=== PATIENT | male | born 1990 | race Caucasian/White ===

== ENCOUNTER 2016-04-29 19:26 | Inpatient (IN) | payer BC ==
--- NOTE | 2016-04-29 20:07 | HP ---
COWS - Scale Resting Pulse: 1= [place] 81-100 Sweatin=Flushed/Facial Moisture Restless Observation: 3= Extraneous Movement Pupil Size: 0= Normal to Room Light Bone or Joint Aches: 2= Severe Diffuse Aches Runny Nose/ Eye Tearin= Nasal Congestion GI Upset > 30mins: 3= Vomiting/Diarrhea Tremor Observation: 2= Slight Tremor Visible Yawning Observation: 0= None Anxiety or Irritability: 2=Irritable/Anxious Goose Flesh Skin: 0=Smooth Skin COWS Score: 16 CIWA Score - CIWA Score Nausea/Vomitin Muscle Tremors: 4-Moderate,w/Arms Extend Anxiety: 4-Mod. Anxious/Guarded Agitation: 4-Moderately Restless Paroxysmal Sweats: 1-Minimal Palms Moist Orientation: 1-Uncertain about Date Tacttile Disturbances: 0-None Auditory Disturbances: 0-None Visual Disturbances: 0-None Headache: 0-None Present CIWA-Ar Total Score: 16 Admission ROS BHS - HPI Chief Complaint: withdrawal sx Allergies/Adverse Reactions: Allergies Allergy/AdvReac Type Severity Reaction Status Date / Time No Known Allergies Allergy Verified 04/29/16 20:16 History of Present Illness: 26 years old male with long history of opiate alcohol nicotine dependence, has copd asthma denies mental illness is admitted to detox Exam Limitations: No Limitations - Ebola screening Have you traveled outside of the country in the last 21 days: No Have you had contact with anyone from an Ebola affected area: No Have you been sick,other than usual withdrawal symptoms: No Do you have a fever: No - Review of Systems Constitutional: Chills, Changes in sleep, Weight Stable EENT: reports: Hearing Loss (both ears) Respiratory: reports: Productive cough (black/greenish) Cardiac: reports: No Symptoms Reported GI: reports: Diarrhea, Nausea, Poor Fluid Intake, Abdominal cramping : reports: No Symptoms Reported Musculoskeletal: reports: Back Pain, Joint Pain, Muscle Pain, Neck Pain Integumentary: reports: No Symptoms Reported Neuro: reports: Tremors Endocrine: reports: No Symptoms Reported Hematology: reports: No Symptoms Reported Psychiatric: reports: Judgement Intact, Mood/Affect Appropiate Other Systems: Reviewed and Negative Patient History - Patient Medical History Hx Anemia: No Hx Asthma: No Hx Chronic Obstructive Pulmonary Disease (COPD): No Hx Cancer: No Hx Cardiac Disorders: No Hx Congestive Heart Failure: No Hx Hypertension: No Hx Hypercholesterolemia: No Hx Pacemaker: No HX Cerebrovascular Accident: No Hx Seizures: No Hx Dementia: No Hx Diabetes: No Hx Gastrointestinal Disorders: No Hx Liver Disease: No Hx Genitourinary Disorders: No Hx Sexually Transmitted Disorders: No Hx Renal Disease (ESRD): No Hx Thyroid Disease: No Hx Human Immunodeficiency Virus (HIV): No Hx Hepatitis C: No Hx Depression: No Hx Suicide Attempt: Yes (accidental overdose 2009) Hx Bipolar Disorder: No Hx Schizophrenia: No - Patient Surgical History Past Surgical History: Yes Hx Neurologic Surgery: No Hx Cataract Extraction: No Hx Cardiac Surgery: No Hx Lung Surgery: No Hx Breast Surgery: No Hx Breast Biopsy: No Hx Abdominal Surgery: No Hx Appendectomy: No Hx Cholecystectomy: No Hx Genitourinary Surgery: No Hx Orthopedic Surgery: No Other Surgical History: left inguinal hernia [id number] Anesthesia Reaction: No - PPD History Previous Implant?: Yes Documented Results: Negative w/proof Implanted On Prior R Admission?: Yes Date: 04/02/15 PPD to be Administered?: Yes - Smoking Cessation Smoking history: Current every day smoker Have you smoked in the past 12 months: Yes Aproximately how many cigarettes per day: 40 Cigars Per Day: 0 Hx Chewing Tobacco Use: No Initiated information on smoking cessation: Yes 'Breaking Loose' booklet given: 04/29/16 - Substance & Tx. History Hx Alcohol Use: Yes Hx Substance Use: Yes Substance Use Type: Alcohol, Marijuana, Opiates, Tranquilizers Hx Substance Use Treatment: Yes - Substances Abused Alcohol Route: Oral Frequency: Daily Amount used: pint volka+1/2L beer x 10 Age of first use: 16 Date of Last Use: 04/29/16 Oxycontin Route: Oral Frequency: Daily Amount used: 100 mg Age of first use: 23 Date of Last Use: 04/29/16 Marijuana/Hashish Route: Smoking Frequency: Daily Amount used: 3-5 G Age of first use: 12 Date of Last Use: 04/29/16 Family Disease History - Family Disease History Family Disease History: Other: Grandparent (opiate dep), Father (opiate dep) Admission Physical Exam BHS - Physical General Appearance: Yes: Nourished, Appropriately Dressed, Mild Distress, Tremorous, Irritable, Sweating, Anxious HEENTM: Yes: Hearing grossly Normal, Normal ENT Inspection, Normocephalic, Normal Voice Respiratory: Yes: Chest Non-Tender, No Respiratory Distress, No Accessory Muscle Use, Wheezing, Expiration Neck: Yes: Supple, Trachea in good position Breast: Yes: Breasts Symetrical Cardiology: Yes: Regular Rhythm, S1, S2, Tachycardia Abdominal: Yes: Non Tender, Soft Genitourinary: Yes: Within Normal Limits Back: Yes: Normal Inspection Musculoskeletal: Yes: full range of Motion, Gait Steady, Back pain Extremities: Yes: Normal Inspection, Normal Range of Motion, Non-Tender, Tremors Neurological: Yes: Alert, Motor Strength 5/5, Normal Mood/Affect, Normal Response Integumentary: Yes: Warm Lymphatic: Yes: Within Normal Limits - Diagnostic (1) Alcohol dependence with uncomplicated withdrawal Current Visit: Yes Status: Acute (2) Opioid dependence with withdrawal Current Visit: Yes Status: Acute (3) Asthma Current Visit: Yes Status: Acute Qualifiers: Asthma severity: mild intermittent Asthma complication type: uncomplicated Qualified Code(s): J45.20 - Mild intermittent asthma, uncomplicated (4) Nicotine dependence Current Visit: Yes Status: Acute Qualifiers: Nicotine product type: cigarettes Substance use status: in withdrawal Qualified Code(s): F17.213 - Nicotine dependence, cigarettes, with withdrawal (5) Cannabis dependence, uncomplicated Current Visit: Yes Status: Chronic Cleared for Admission [facility] - Detox or Rehab [facility] Level of Care: Medically Managed Detox Regimen/Protocol: Methadone/Valium S Breath Alcohol Content Breath Alcohol Content: 0 Vital Signs - Vital Signs Vital Signs Refused: No Temperature: 95.2 F Temperature Source: Oral Pulse Rate: 84 Respiratory Rate: 18 Blood Pressure: 118/73 BP Location: Left Arm Blood Pressure Position: Sitting - Height Height: 6 ft - Weight Weight: 247 lb Weight Measurement Method: Standing Scale Body Mass Index (BMI): 33.5 - Bowel Function Bowel Movement: Yes Urine Drug Screen - Control Is Test Valid: Yes - Results Drug Screen Negative: No Urine Drug Screen Results: THC-Marijuana, BZO-Benzodiazepines, OXY-Oxycodone
[2016-04-29 20:12] VITALS: BMI 33.5
[2016-04-29] MEDS ORDERED: MAG HYDROX/AL HYDROX/SIMETH 30 ML UNIT-DOSE CUP PO PRN (20:24)
[2016-04-29] MEDS ORDERED: guaiFENesin/D-METHORPHAN HB 10 ML UNIT-DOSE CUPS PO PRN (20:24)
[2016-04-29] MEDS ORDERED: diazePAM 5 MG TABLET PO ONE (20:24)
[2016-04-29] MEDS ORDERED: NICOTINE POLACRILEX 4 MG GUM BC PRN (20:24)
[2016-04-29] MEDS ORDERED: LOPERAMIDE HCL 2 MG CAPSULE PO PRN (20:24)
[2016-04-29] MEDS ORDERED: METHADONE HCL 10 MG TABLET (FOR DETOX USE ONLY) PO ONE ×2 (20:24→23:00)
[2016-04-29] MEDS ORDERED: diphenhydrAMINE HCL 50 MG CAPSULE PO PRN (20:24)
[2016-04-29] MEDS ORDERED: MAGNESIUM CITRATE 300 ML BOTTLE PO PRN (20:24)
[2016-04-29] MEDS ORDERED: ACETAMINOPHEN 325 MG TABLET (FP) PO PRN (20:24)
[2016-04-29] MEDS ORDERED: P-EPHED 60MG/TRIPROLIDI 2.5MG TABLET PO PRN (20:24)
[2016-04-29] MEDS ORDERED: MENTHOL/PHENOL 1 EACH UD MM PRN (20:24)
[2016-04-29] MEDS ORDERED: IBUPROFEN 400 MG TABLET (FP) PO PRN (20:24)
[2016-04-29] MEDS ORDERED: MAGNESIUM HYDROX 2400MG/30ML ORAL SUSPENSION 30 ML CUP PO PRN (20:24)
[2016-04-29] MEDS ORDERED: ALBUTEROL SO4 2.5/IPRATROPIUM 0.5 INH SOL 3 ML VIAL.NEB. NEB PRN (20:28)
[2016-04-29] MEDS ORDERED: ALBUTEROL SO4 6.7 GM HFA INHALER IH PRN (20:28)
[2016-04-29] MEDS: THIAMINE HCL 100 MG TABLET (FP) PO SCH (21:48)
[2016-04-29] MEDS: diazePAM 5 MG TABLET PO SCH (21:58)
[2016-04-29 22:28] LABS: URINE APPEARANCE CLEAR; URINE BILIRUBIN NEGATIVE (NEGATIVE); URINE BLOOD NEGATIVE (NEGATIVE); URINE COLOR STRAW; URINE GLUCOSE (UA) NEGATIVE (NEGATIVE); URINE KETONE NEGATIVE (NEGATIVE); URINE LEUK ESTERASE NEGATIVE (NEGATIVE); URINE NITRITE NEGATIVE (NEGATIVE); URINE PROTEIN NEGATIVE (NEGATIVE); URINE UROBILINOGEN NEGATIVE E.U./dl (0.2-1.0)
[2016-04-30] MEDS: diazePAM 5 MG TABLET PO SCH ×3 (05:35→22:27)
[2016-04-30] MEDS: diazePAM 5 MG TABLET PO PRN ×2 (09:42→17:55)
[2016-04-30] MEDS: NICOTINE 21 MG/24 HOURS TOPICAL PATCH TD SCH (09:43)
[2016-04-30] MEDS: PRENATAL VITAMINS W/ FOLIC ACID TABLET (FP) PO SCH (09:43)
[2016-04-30] MEDS ORDERED: METHADONE HCL 10 MG TABLET (FOR DETOX USE ONLY) PO SCH (10:00)
[2016-04-30 10:46] LABS: MCH 30.3 pg (25.7-33.7); MCHC 33.3 g/dl (32.0-35.9); MEAN PLT VOLUME 8.6 fl (7.5-11.1); PLATELET COUNT 223 K/MM3 (134-434); RDW 13.1 % (11.9-15.9)
[2016-04-30 11:56] LABS: ALBUMIN 3.8 g/dl (3.4-5.0); ANION GAP 8 (8-16); CALCIUM 8.9 mg/dL (8.5-10.1); CO2 26 mmol/L (21-32); CREATININE 0.8 mg/dL (0.7-1.3); GLUCOSE,RANDOM 81 mg/dL (74-106); SGOT/AST 14 U/L (15-37); SGPT/ALT 36 U/L (12-78)
[2016-04-30 11:59] LABS: ALK PHOS 55 U/L (45-117); BILIRUBIN,TOTAL 0.3 mg/dL (0.2-1.0); TOT PROT 6.5 g/dl (6.4-8.2)
--- NOTE | 2016-04-30 15:23 | PN ---
S CIWA - CIWA Score Nausea/Vomitin Muscle Tremors: 3 Anxiety: 2 Agitation: 3 Paroxysmal Sweats: 3 Orientation: 0-Oriented Tacttile Disturbances: 0-None Auditory Disturbances: 2-Mild Harshness/Frighten Visual Disturbances: 2-Mild Sensitivity Headache: 0-None Present CIWA-Ar Total Score: 18 BHS COWS - Scale Resting Pulse: 1= [place] 81-100 Sweatin= Chills/Flushing Restless Observation: 1= Difficult to Sit Still Pupil Size: 0= Normal to Room Light Bone or Joint Aches: 2= Severe Diffuse Aches Runny Nose/ Eye Tearin= Nasal Congestion GI Upset > 30mins: 2= Nausea/Diarrhea Tremor Observation of Outstretched Hands: 2= Slight Tremor Visible Yawning Observation: 0= None Anxiety or Irritability: 2=Irritable/Anxious Goose Flesh Skin: 3=Piloerection COWS Score: 15 BHS Progress Note (SOAP) Subjective: Sweating, Tremors, Nausea, Lower Back Ache, Interrupted sleep. Objective: PT. A & O X 3, OBSERVED AMBULATING ON UNIT. 04/30/16 15:21 Vital Signs Temperature 98 F 04/30/16 13:23 Pulse Rate 90 04/30/16 13:23 Respiratory Rate 18 04/30/16 13:23 Blood Pressure 151/87 04/30/16 13:23 O2 Sat by Pulse Oximetry (%) Laboratory Last Values WBC 8.0 K/mm3 (4.0-10.0) D 04/30/16 08:13 RBC 4.80 M/mm3 (4.00-5.60) 04/30/16 08:13 Hgb 14.5 GM/dL (11.7-16.9) 04/30/16 08:13 Hct 43.7 % (35.4-49) 04/30/16 08:13 MCV 91.0 fl (80-96) 04/30/16 08:13 MCHC 33.3 g/dl (32.0-35.9) 04/30/16 08:13 RDW 13.1 % (11.9-15.9) 04/30/16 08:13 Plt Count 223 K/MM3 (134-434) D 04/30/16 08:13 MPV 8.6 fl (7.5-11.1) 04/30/16 08:13 Sodium 140 mmol/L (136-145) 04/30/16 08:13 Potassium 4.3 mmol/L (3.5-5.1) 04/30/16 08:13 Chloride 106 mmol/L (98-107) 04/30/16 08:13 Carbon Dioxide 26 mmol/L (21-32) 04/30/16 08:13 Anion Gap 8 (8-16) 04/30/16 08:13 BUN 12 mg/dL (7-18) D 04/30/16 08:13 Creatinine 0.8 mg/dL (0.7-1.3) D 04/30/16 08:13 Creat Clearance w eGFR > 60 (>60) 04/30/16 08:13 Random Glucose 81 mg/dL (74-106) 04/30/16 08:13 Calcium 8.9 mg/dL (8.5-10.1) 04/30/16 08:13 Total Bilirubin 0.3 mg/dL (0.2-1.0) 04/30/16 08:13 AST 14 U/L (15-37) L D 04/30/16 08:13 ALT 36 U/L (12-78) D 04/30/16 08:13 Alkaline Phosphatase 55 U/L (45-117) 04/30/16 08:13 Total Protein 6.5 g/dl (6.4-8.2) 04/30/16 08:13 Albumin 3.8 g/dl (3.4-5.0) 04/30/16 08:13 Urine Color Straw 04/29/16 21:48 Urine Appearance Clear 04/29/16 21:48 Urine pH 5.0 (5.0-8.0) 04/29/16 21:48 Ur Specific [place] 1.008 (1.001-1.035) 04/29/16 21:48 Urine Protein Negative (NEGATIVE) 04/29/16 21:48 Urine Glucose (UA) Negative (NEGATIVE) 04/29/16 21:48 Urine Ketones Negative (NEGATIVE) 04/29/16 21:48 Urine Blood Negative (NEGATIVE) 04/29/16 21:48 Urine Nitrite Negative (NEGATIVE) 04/29/16 21:48 Urine Bilirubin Negative (NEGATIVE) 04/29/16 21:48 Urine Urobilinogen Negative E.U./dl (0.2-1.0) 04/29/16 21:48 Ur Leukocyte Esterase Negative (NEGATIVE) 04/29/16 21:48 LABS NOTED. Assessment: 04/30/16 15:22 WITHDRAWAL SYMPTOMS. Plan: CONTINUE DETOX. ADVISED PATIENT TO FOLLOW-UP WITH PERSONAL SERVICE REPRESENTATIVE / REHAB MEDICAL PROVIDER AFTER DISCHARGE FROM DETOX FOR GENERAL MEDICAL ASSESSMENT AND FOR ANY ABNORMAL ADMISSION LAB VALUES.
[2016-04-30] MEDS: THIAMINE HCL 100 MG TABLET (FP) PO SCH (22:26)
[2016-05-01] MEDS: diazePAM 5 MG TABLET PO PRN (05:33)
[2016-05-01] MEDS ORDERED: diazePAM 5 MG TABLET PO SCH (10:00)
[2016-05-01] MEDS ORDERED: METHADONE HCL 5 MG TABLET (FOR DETOX USE ONLY) PO SCH (10:00)
[2016-05-01] MEDS: NICOTINE 21 MG/24 HOURS TOPICAL PATCH TD SCH (10:06)
[2016-05-01] MEDS: PRENATAL VITAMINS W/ FOLIC ACID TABLET (FP) PO SCH (10:06)
--- NOTE | 2016-05-01 11:11 | PN ---
S CIWA - CIWA Score Nausea/Vomitin Muscle Tremors: 4-Moderate,w/Arms Extend Anxiety: 4-Mod. Anxious/Guarded Agitation: 4-Moderately Restless Paroxysmal Sweats: No Perspiration Orientation: 0-Oriented Tacttile Disturbances: 0-None Auditory Disturbances: 0-None Visual Disturbances: 0-None Headache: 2-Mild CIWA-Ar Total Score: 17 BHS COWS - Scale Resting Pulse: 0= [place] 80 or Below Sweatin= Chills/Flushing Restless Observation: 3= Extraneous Movement Pupil Size: 0= Normal to Room Light Bone or Joint Aches: 2= Severe Diffuse Aches Runny Nose/ Eye Tearin= Runny Nose/Eyes GI Upset > 30mins: 2= Nausea/Diarrhea Tremor Observation of Outstretched Hands: 2= Slight Tremor Visible Yawning Observation: 0= None Anxiety or Irritability: 4=Extreme Anxiety Goose Flesh Skin: 0=Smooth Skin COWS Score: 16 S Progress Note (SOAP) Subjective: Anxious, tremor, sweating, nausea, headache, body aches, interrupted sleep Objective: 05/01/16 11:09 Last Vital Signs Temp Pulse Resp BP Pulse Ox 97.1 F L 74 18 133/84 05/01/16 06:35 05/01/16 06:35 05/01/16 06:35 05/01/16 06:35 Laboratory Tests 04/29/16 04/30/16 04/30/16 21:48 08:13 08:13 WBC 8.0 D RBC 4.80 Hgb 14.5 Hct 43.7 MCV 91.0 MCHC 33.3 RDW 13.1 Plt Count 223 D MPV 8.6 Sodium 140 Potassium 4.3 Chloride 106 Carbon Dioxide 26 Anion Gap 8 BUN 12 D Creatinine 0.8 D Creat Clearance w eGFR > 60 Random Glucose 81 Calcium 8.9 Total Bilirubin 0.3 AST 14 L D ALT 36 D Alkaline Phosphatase 55 Total Protein 6.5 Albumin 3.8 Urine Color Straw Urine Appearance Clear Urine pH 5.0 Ur Specific [place] 1.008 Urine Protein Negative Urine Glucose (UA) Negative Urine Ketones Negative Urine Blood Negative Urine Nitrite Negative Urine Bilirubin Negative Urine Urobilinogen Negative Ur Leukocyte Esterase Negative RPR Titer 04/30/16 08:13 WBC RBC Hgb Hct MCV MCHC RDW Plt Count MPV Sodium Potassium Chloride Carbon Dioxide Anion Gap BUN Creatinine Creat Clearance w eGFR Random Glucose Calcium Total Bilirubin AST ALT Alkaline Phosphatase Total Protein Albumin Urine Color Urine Appearance Urine pH Ur Specific [place] Urine Protein Urine Glucose (UA) Urine Ketones Urine Blood Urine Nitrite Urine Bilirubin Urine Urobilinogen Ur Leukocyte Esterase RPR Titer Nonreactive Labs noted Assessment: 05/01/16 11:10 Withdrawal symptoms Plan: Continue detox
--- NOTE | 2016-05-01 11:38 | EKG ---
Test Reason : Blood Pressure : / mmHG Vent. Rate : 072 BPM Atrial Rate : 072 BPM P-R Int : 170 ms QRS Dur : 098 ms QT Int : 376 ms P-R-T Axes : 065 086 064 degrees QTc Int : 411 ms NORMAL SINUS RHYTHM NORMAL ECG NO PREVIOUS ECGS AVAILABLE Confirmed by YULIA TENORIO MD ([id number]) on 05/01/2016 11:38:28 AM Referred By: Confirmed By:YULIA TENORIO MD
[2016-05-01 11:59] VITALS: BP 121/79; PULSE 71; TEMP 97.5
--- NOTE | 2016-05-01 14:54 | DS ---
[facility] Detox Discharge Summary Admission Date: 04/29/16 Discharge Date: 05/01/16 (misconduct and increased irritability, unable to follow verbal commands) - History Present History: Alcohol Dependence, Opioid Dependence Pertinent Past History: Asthma - Physical Exam Results Vital Signs: Vital Signs Temperature 97.5 F L 05/01/16 11:58 Pulse Rate 71 05/01/16 11:58 Respiratory Rate 18 05/01/16 11:58 Blood Pressure 121/79 05/01/16 11:58 O2 Sat by Pulse Oximetry (%) Pertinent Admission Physical Exam Findings: Withdrawal symptoms Laboratory Tests 04/29/16 04/30/16 04/30/16 21:48 08:13 08:13 WBC 8.0 D RBC 4.80 Hgb 14.5 Hct 43.7 MCV 91.0 MCHC 33.3 RDW 13.1 Plt Count 223 D MPV 8.6 Sodium 140 Potassium 4.3 Chloride 106 Carbon Dioxide 26 Anion Gap 8 BUN 12 D Creatinine 0.8 D Creat Clearance w eGFR > 60 Random Glucose 81 Calcium 8.9 Total Bilirubin 0.3 AST 14 L D ALT 36 D Alkaline Phosphatase 55 Total Protein 6.5 Albumin 3.8 Urine Color Straw Urine Appearance Clear Urine pH 5.0 Ur Specific [place] 1.008 Urine Protein Negative Urine Glucose (UA) Negative Urine Ketones Negative Urine Blood Negative Urine Nitrite Negative Urine Bilirubin Negative Urine Urobilinogen Negative Ur Leukocyte Esterase Negative RPR Titer 04/30/16 08:13 WBC RBC Hgb Hct MCV MCHC RDW Plt Count MPV Sodium Potassium Chloride Carbon Dioxide Anion Gap BUN Creatinine Creat Clearance w eGFR Random Glucose Calcium Total Bilirubin AST ALT Alkaline Phosphatase Total Protein Albumin Urine Color Urine Appearance Urine pH Ur Specific [place] Urine Protein Urine Glucose (UA) Urine Ketones Urine Blood Urine Nitrite Urine Bilirubin Urine Urobilinogen Ur Leukocyte Esterase RPR Titer Nonreactive Labs noted - Medication Discharge Medications: Ambulatory Orders Albuterol Sulfate Inhaler - [Ventolin HFA Inhaler -] 2 puff IH Q4H PRN #0 inhaler 04/05/15 - Diagnosis (1) Alcohol dependence with uncomplicated withdrawal Current Visit: Yes Status: Acute (2) Asthma Current Visit: Yes Status: Chronic Qualifiers: Asthma severity: mild intermittent Asthma complication type: uncomplicated Qualified Code(s): J45.20 - Mild intermittent asthma, uncomplicated (3) Opioid dependence with withdrawal Current Visit: Yes Status: Acute - AMA Did Patient Leave Against Medical Advice: No (Administratively discharged due to misconduct, increased irritability)
[2016-05-03] MEDS ORDERED: diazePAM 5 MG TABLET PO SCH (10:00)
[2016-05-03] MEDS ORDERED: METHADONE HCL 10 MG TABLET (FOR DETOX USE ONLY) PO SCH (10:00)
[2016-05-04] MEDS ORDERED: METHADONE HCL 5 MG TABLET (FOR DETOX USE ONLY) PO SCH (06:00)
== END 2016-05-01 15:03 | disposition home or self-care (01) | DRG 773 ==
LOC: YASAS 19:26 → Y3N 20:15
PROVIDERS: ADMIT Internal Medicine Addiction Medicine; ATTEND Internal Medicine Addiction Medicine
PROC: HZ2ZZZZ Detoxification Services for Substance Abuse Treatment (ICD-10-PCS; principal; 2016-04-29)
DX: F11.23 Opioid dependence with withdrawal (principal); F10.230 Alcohol dependence with withdrawal, uncomplicated; F12.20 Cannabis dependence, uncomplicated; F17.210 Nicotine dependence, cigarettes, uncomplicated; J45.20 Mild intermittent asthma, uncomplicated; R00.0 Tachycardia, unspecified; Z91.5 Personal history of self-harm; F91.8 Other conduct disorders
CPT/HCPCS: 36415; 80053; 81003; 85027; 86593; 93005; 93010